=== PATIENT | male | born 1970 | race Two or more races ===

== ENCOUNTER 2022-04-11 02:30 | Emergency (ER) | payer SELFPAY ==
[~2022-04-11] VITALS: Ht 180.3 cm; Wt 84.1 kg
[2022-04-11] MEDS ORDERED: methylPREDNISolone SOD SUCC 125 MG/2 ML VL IM ONE (05:45)
[2022-04-11] MEDS ORDERED: KETOROLAC TROMETH 30 MG/ML 1ML VIAL IM ONE (05:45)
[2022-04-11 05:48] VITALS: BP 158/87
[2022-04-11] MEDS ORDERED: INDO50CA82 PO (05:59)
[2022-04-11] MEDS ORDERED: COLC1TAB3 PO (05:59)
== END 2022-04-11 06:33 | disposition home or self-care (01) ==
LOC: EDBD 02:30 → ER 02:43
DX: M10.171 Lead-induced gout, right ankle and foot (principal); Z87.891 Personal history of nicotine dependence
CPT/HCPCS: 73610; 96372; 99284; J1885; J2930